=== PATIENT | female | born 1975 | race Caucasian/White ===

== ENCOUNTER → 2018-06-12 | Outpatient (CLI) | payer OTHER ==
[~2018-06-12] MED LIST: FLONASE 0.05%50 MCG NASAL; IBUPROFEN 800800 MG PO; KEFLEX500 MG PO; LEVAQUIN 750 M750 MG PO; PREDNISONE 10 M10 M1 PO; TRAMADOL 50 MG50 MG PO; ULTRACET TABLE1 EACH PO
[2018-06-12 08:59] LABS: ABSOLUTE BASOPHILS 0.1 thou/uL (0.0-0.2); ABSOLUTE EOSINOPHILS 0.5 thou/uL (0.0-0.7); ABSOLUTE LYMPHOCYTES 2.2 thou/uL (0.8-5.3); ABSOLUTE MONOCYTES 1.3 thou/uL (0.0-1.2); ABSOLUTE NEUTROPHILS 6.9 thou/uL (1.6-8.1); BASOPHILS 1.1 %; EOSINOPHILS 4.1 %; HEMATOCRIT 44.1 % (37.0-47.0); HEMOGLOBIN 14.9 gm/dL (12.0-15.0); LYMPHOCYTES 19.9 %; MCH 37.9 pg (26.0-34.0); MCHC 33.9 g/dL (28.0-37.0); MCV 111.8 fL (80.0-100.0); MONOCYTES 11.8 %; NUCLEATED RBCS 0 /100WBC; PLATELET COUNT* 174 thou/uL (150-400); POLYS 63.1 %; RBC 3.94 mil/uL (4.20-5.00); RDW-CV 13.3 % (10.5-14.5)
[2018-06-12 09:23] LABS: INR 1.1; PROTIME 10.4 Seconds (9.20-11.50)
[2018-06-12 09:44] LABS: ALBUMIN 2.8 g/dL (3.4-5.0); CALCIUM 8.7 mg/dL (8.5-10.1); CREATININE 0.6 mg/dL (0.6-1.3); POTASSIUM 3.6 mmol/L (3.5-5.1); TOTAL BILIRUBIN 3.1 mg/dL (<0.1-1.0)
[2018-06-12 09:45] LABS: TOTAL PROTEIN 6.2 g/dL (6.4-8.2)
[2018-06-12 10:12] LABS: MACROCYTES Occasional; PLATELET ESTIMATE ADEQUATE
== END ==
LOC: M.ULTRA 07:38
PROVIDERS: Nurse Practitioner Adult Health
DX: K70.11 Alcoholic hepatitis with ascites (principal); J90 Pleural effusion, not elsewhere classified; K82.8 Other specified diseases of gallbladder; R16.1 Splenomegaly, not elsewhere classified; R14.0 Abdominal distension (gaseous); Z87.19 Personal history of other diseases of the digestive system; Z87.891 Personal history of nicotine dependence; R79.89 Other specified abnormal findings of blood chemistry; K76.0 Fatty (change of) liver, not elsewhere classified

== ENCOUNTER → 2018-08-07 | Outpatient (CLI) | payer OTHER ==
[2018-08-07 15:42] LABS: ALBUMIN 3.2 g/dL (3.4-5.0); CALCIUM 9.2 mg/dL (8.5-10.1); CREATININE 0.8 mg/dL (0.6-1.3); POTASSIUM 3.9 mmol/L (3.5-5.1); TOTAL BILIRUBIN 0.8 mg/dL (<0.1-1.0); TOTAL PROTEIN 7.3 g/dL (6.4-8.2)
[2018-08-07 16:02] LABS: % SATURATION 38 % (20-39); IRON 105 ug/dL (50-175)
[2018-08-07 22:06] LABS: IgA 395 mg/dL (87-352); IgG 1071 mg/dL (700-1600)
[2018-08-10 10:06] LABS: CERULOPLASMIN 27.5 mg/dL (19.0-39.0)
[2018-08-11 13:08] LABS: ANTI-DNA SCREEN 4 IU/mL (0-9); ANTI-RNP <0.2 AI (0.0-0.9)
== END ==
LOC: M.LAB 15:07
PROVIDERS: Nurse Practitioner Adult Health
DX: K70.10 Alcoholic hepatitis without ascites (principal); N19 Unspecified kidney failure; R94.5 Abnormal results of liver function studies